=== PATIENT | male | born 1965 | race Caucasian/White ===

== ENCOUNTER 2020-04-07 22:28 | Observation (INO) | payer OTHER ==
[2020-04-07 22:56] LABS: HEMOGLOBIN 14.8 gm/dl (14.0-17.5); RED BLOOD COUNT 4.83 M/UL (4.20-5.50); WHITE BLOOD COUNT 4.7 K/UL (4.5-11.0)
[2020-04-07 23:26] LABS: BUN/CREATININE RATIO 29 (0-10)
[2020-04-08] MEDS ORDERED: COLACE100 MG PO (03:36)
[2020-04-08] MEDS ORDERED: CATAPRES0.1 MG PO (03:36)
[2020-04-08] MEDS ORDERED: DOXYCYCLINE MO100 MG PO (03:37)
[2020-04-08] MEDS ORDERED: KEPPRA500 MG PO (03:38)
[2020-04-08] MEDS ORDERED: LISINOPRIL20 MG PO (03:39)
[2020-04-08] MEDS ORDERED: MUCINEX600 MG PO (03:41)
[2020-04-08] MEDS ORDERED: PREDNISONE10 M1 PO (03:43)
[2020-04-08] MEDS ORDERED: PROAIR DIGIHAL90 MCG INH (03:45)
[2020-04-08] MEDS ORDERED: AMLODIPINE BESYL5 MG PO (03:46)
[2020-04-08] MEDS ORDERED: TYLENOL 500 MG500 MG PO (10:06)
[2020-04-08] MEDS ORDERED: PULMICORT0.5 MG/2 M INH (10:06)
[2020-04-08] MEDS ORDERED: IPRAT-ALBUT 0.5-3 ML NEB (10:06)
[2020-04-08] MEDS ORDERED: VITAMIN B-1100 M1 PO (10:06)
[2020-04-08] MEDS ORDERED: DEXAMETHASONE6 MG PO (10:06)
== END 2020-04-08 13:18 | disposition other institution (70) ==
LOC: ER1 22:28 → CDU 04-08 03:06 → MED SURG 4 04-08 03:06
PROVIDERS: Physician Assistant; ADMIT Internal Medicine
DX: J44.1 Chronic obstructive pulmonary disease with (acute) exacerbation (principal); U07.1 COVID-19; J12.82 Pneumonia due to coronavirus disease 2019; S22.41XA Multiple fractures of ribs, right side, initial encounter for closed fracture; I10 Essential (primary) hypertension; F10.129 Alcohol abuse with intoxication, unspecified; E46 Unspecified protein-calorie malnutrition; F17.210 Nicotine dependence, cigarettes, uncomplicated; S02.609A Fracture of mandible, unspecified, initial encounter for closed fracture; K74.60 Unspecified cirrhosis of liver; R16.1 Splenomegaly, not elsewhere classified; G40.909 Epilepsy, unspecified, not intractable, without status epilepticus; R09.02 Hypoxemia; M51.36 Other intervertebral disc degeneration, lumbar region; M51.34 Other intervertebral disc degeneration, thoracic region; M43.8X4 Other specified deforming dorsopathies, thoracic region; M95.8 Other specified acquired deformities of musculoskeletal system; Z79.2 Long term (current) use of antibiotics; Z88.5 Allergy status to narcotic agent; Z23 Encounter for immunization; Z79.1 Long term (current) use of non-steroidal anti-inflammatories (NSAID); Z79.52 Long term (current) use of systemic steroids; Z79.899 Other long term (current) drug therapy; Z99.81 Dependence on supplemental oxygen; Z87.81 Personal history of (healed) traumatic fracture
CPT/HCPCS: 36600; 70450; 70486; 71045; 71250; 72070; 72100; 80053; 82550; 82553; 82803; 83605; 83874; 84484; 85025; 85379; 87040; 90686; 93005; 96372; 96374; 96375; 99285; G0008; G0378; J1100; J1885; U0002

== ENCOUNTER → 2020-04-25 | Outpatient (CLI) | payer OTHER ==
[~2020-04-25] MED LIST: AMLODIPINE BESYL5 MG PO; CATAPRES0.1 MG PO; COLACE100 MG PO; DEXAMETHASONE6 MG PO; DOXYCYCLINE MO100 MG PO; IPRAT-ALBUT 0.5-3 ML NEB; KEPPRA500 MG PO; LISINOPRIL20 MG PO; MUCINEX600 MG PO; PREDNISONE10 M1 PO; PROAIR DIGIHAL90 MCG INH; PULMICORT0.5 MG/2 M INH; TYLENOL 500 MG500 MG PO; VITAMIN B-1100 M1 PO
== END ==
LOC: HEART 5 11:14
DX: J44.9 Chronic obstructive pulmonary disease, unspecified (principal); Z86.16 Personal history of COVID-19; R94.2 Abnormal results of pulmonary function studies
CPT/HCPCS: 94010; 94729